=== PATIENT | male | born 1950 | race Two or more races ===

== ENCOUNTER 2019-05-04 18:27 | Emergency (ER) | payer MEDICARE, MEDICAID ==
[~2019-05-04] VITALS: Ht 172.7 cm; Wt 68.2 kg
[2019-05-04 19:26] LABS: BASOPHILS % (AUTO) 0.4 % (0.0-2.0); EOSINOPHILS % (AUTO) 1.9 % (1.0-6.0); HEMATOCRIT 34.6 % (41-53); HEMOGLOBIN 11.6 g/dL (13.5-17.5); LYMPHOCYTES # (AUTO) 1.7 K/uL (1.0-4.8); LYMPHOCYTES % (AUTO) 21.9 % (22.0-44.0); MEAN CORPUSCULAR HEMOGLOBIN 31.6 pg (26.0-34.0); MEAN CORPUSCULAR HGB CONC 33.6 G/dL (31.0-37.0); MEAN CORPUSCULAR VOLUME 94 fL (80-100); MONOCYTES # (AUTO) 1.3 K/uL (0.1-1.0); MONOCYTES % (AUTO) 16.5 % (2.0-9.0); NEUTROPHILS # (AUTO) 4.7 K/uL (1.8-7.7); NEUTROPHILS % (AUTO) 59.3 % (40.0-70.0); RED BLOOD CELL COUNT(AUTO) 3.67 MIL/uL (4.50-5.90); RED CELL DISTRIBUTION WIDTH 22.7 % (11.5-14.5)
[2019-05-04 19:34] LABS: CALCIUM, TOTAL 7.9 mg/dL (8.8-10.5); CREATININE 1.29 mg/dL (0.60-1.30); POTASSIUM 4.6 mmol/L (3.5-5.1)
[2019-05-04 19:39] LABS: INR 1.4 (0.9-1.1); PROTHROMBIN TIME 13.8 SEC (9.4-11.6)
[2019-05-04 19:40] LABS: ALBUMIN 2.4 g/dL (3.4-5.0); BILIRUBIN,TOTAL 3.5 mg/dL (0.1-1.0); TOTAL PROTEIN, SERUM 5.3 g/dL (6.4-8.2)
[2019-05-04 20:15] LABS: PLATELET COUNT (AUTO) 50 K/uL (150-450); PLATELET MORPHOLOGY COMMENT DECREASED
[2019-05-04 20:29] LABS: D-DIMER 7.98 mg/L FEU (0.00-0.50)
[2019-05-04] MEDS ORDERED: SODIUM CHLORIDE 0.9% 100 ML ONE (21:29)
[2019-05-04] MEDS ORDERED: IOVERSOL 350 MG/ML 100 ML VIAL ONE (21:30)
[2019-05-05 00:24] VITALS: BP 95/51
== END 2019-05-05 02:02 | disposition home or self-care (01) ==
LOC: EMS 18:27
DX: J90 Pleural effusion, not elsewhere classified (principal); R06.09 Other forms of dyspnea; J98.11 Atelectasis; J43.9 Emphysema, unspecified; R60.0 Localized edema; M79.89 Other specified soft tissue disorders; Z98.890 Other specified postprocedural states; Z79.899 Other long term (current) drug therapy
CPT/HCPCS: 36415; 71045; 71275; 80053; 83880; 84484; 85025; 85379; 85610; 85730; 93005; 99285; J7050; Q9967